=== PATIENT | female | born 1960 | race Two or more races ===

== ENCOUNTER 2017-05-30 10:26 | Outpatient (CLI) | payer OTHER ==
[~2017-05-30 10:26] MED LIST: ANASTROZOLE PO; NORVASC10 MG PO
== END 2017-05-30 10:28 | disposition home or self-care (01) ==
LOC: SONOGRAMA 10:26
DX: N63.10 Unspecified lump in the right breast, unspecified quadrant (principal); N63.20 Unspecified lump in the left breast, unspecified quadrant

== ENCOUNTER 2017-11-20 09:57 | Outpatient (CLI) | payer OTHER | END 2017-11-20 10:20 | disposition home or self-care (01) | LOC: SONOGRAMA 09:57 | DX: N64.89 Other specified disorders of breast (principal) ==

== ENCOUNTER 2018-01-01 09:32 | Outpatient (CLI) | payer OTHER | END 2018-01-01 09:36 | disposition home or self-care (01) | LOC: MAMO-SONO 09:32 | DX: N64.89 Other specified disorders of breast (principal) ==